=== PATIENT | male | born 1955 | race Caucasian/White ===

== ENCOUNTER 2017-12-14 10:32 | Emergency (ER) | payer OTHER, MEDICAID ==
[~2017-12-14] VITALS: Ht 152.4 cm; Wt 59.0 kg
[~2017-12-14 10:32] MED LIST: ADVIL200 M1 PO; AMLODIPINE BESY10 MG PO; ASPIR 8181 MG PO; ATORVASTATIN CA40 MG PO; CIPROFLOXACIN500 M1 PO; FLOMAX0.4 MG PO; HYDROCODON-ACE1 EAC7 PO; HYZAAR; KLOR-CON 1010 MEQ PO; LOPRESSOR50 PO; LORTAB 5 MG/5001 TA1 PO; LOSARTAN-HCTZ1 EAC1 PO; MACROBID 100 M100 M1 PO; NAPROSYN500 MG PO; NITROGLYCERIN0.4 MG SUBLING; PLAVIX 75 MG TA75 M1 PO; PROLOPRIM100 MG PO; TYLENOL325 MG PO; ZOCOR40 MG PO; ZPAK PO
[2017-12-14] MEDS ORDERED: MEN'S MULTI-VI1 EACH PO (10:56)
[2017-12-14] MEDS ORDERED: STOOL SOFTENER100 MG PO (10:57)
[2017-12-14] MEDS ORDERED: HERBAL LAX (10:57)
[2017-12-14] MEDS ORDERED: FISH OIL 1,001000 M2 PO (10:58)
[2017-12-14] MEDS ORDERED: VITAMINC500 PO (10:58)
[2017-12-14 12:52] VITALS: BP 131/102
== END 2017-12-14 12:52 | disposition home or self-care (01) ==
LOC: M.ERS 10:32
DX: S01.01XA Laceration without foreign body of scalp, initial encounter (principal); E78.00 Pure hypercholesterolemia, unspecified; Z88.1 Allergy status to other antibiotic agents; W01.190A Fall on same level from slipping, tripping and stumbling with subsequent striking against furniture, initial encounter; Y93.89 Activity, other specified; Y92.89 Other specified places as the place of occurrence of the external cause; Y99.8 Other external cause status

== ENCOUNTER 2018-08-05 09:36 | Emergency (ER) | payer OTHER, MEDICAID ==
[~2018-08-05] VITALS: Ht 152.4 cm; Wt 59.0 kg
[~2018-08-05 09:36] MED LIST changes: +FISH OIL 1,001000 M2 PO; +HERBAL LAX; +MEN'S MULTI-VI1 EACH PO; +STOOL SOFTENER100 MG PO; +VITAMINC500 PO
[2018-08-05 11:09] VITALS: BP 119/72
== END 2018-08-05 11:09 | disposition home or self-care (01) ==
LOC: M.ERS 09:36
DX: S01.01XA Laceration without foreign body of scalp, initial encounter (principal); Z88.1 Allergy status to other antibiotic agents; Z88.2 Allergy status to sulfonamides; Z90.49 Acquired absence of other specified parts of digestive tract; W18.39XA Other fall on same level, initial encounter; Y93.89 Activity, other specified; Y92.89 Other specified places as the place of occurrence of the external cause; Y99.8 Other external cause status

== ENCOUNTER 2019-06-28 18:40 | Emergency (ER) | payer OTHER ==
[~2019-06-28] VITALS: Ht 152.4 cm; Wt 59.0 kg
[2019-06-28 20:28] VITALS: BP 115/80
== END 2019-06-28 20:29 | disposition home or self-care (01) ==
LOC: M.ERS 18:40
DX: S01.01XA Laceration without foreign body of scalp, initial encounter (principal); E78.00 Pure hypercholesterolemia, unspecified; Z95.5 Presence of coronary angioplasty implant and graft; Z88.1 Allergy status to other antibiotic agents; Z88.2 Allergy status to sulfonamides; W18.09XA Striking against other object with subsequent fall, initial encounter; Y93.89 Activity, other specified; Y92.89 Other specified places as the place of occurrence of the external cause; Y99.8 Other external cause status

== ENCOUNTER 2019-11-18 18:30 | Emergency (ER) | payer MEDICARE ==
[~2019-11-18] VITALS: Ht 152.4 cm; Wt 59.0 kg
[2019-11-18 19:07] LABS: ABSOLUTE MONOCYTES 0.7 thou/uL (0.0-1.2); BASOPHILS 0.2 %; HEMATOCRIT 38.3 % (42.0-52.0); HEMOGLOBIN 13.2 gm/dL (14.0-18.0); MCHC 34.5 g/dL (28.0-37.0); MCV 95.8 fL (80.0-100.0); MONOCYTES 7.5 %; NUCLEATED RBCS 0 /100WBC; PLATELET COUNT* 302 thou/uL (150-400); POLYS 82.3 %; RBC 3.99 mil/uL (4.50-6.00); RDW-CV 13.2 % (10.5-14.5); WBC 9.8 thou/uL (4.0-11.0)
[2019-11-18 19:15] LABS: APTT 26.2 Seconds (25.0-31.3); PROTIME 10.6 Seconds (9.20-11.50)
[2019-11-18 19:16] LABS: CALCIUM 9.3 mg/dL (8.5-10.1); CREATININE 0.9 mg/dL (0.6-1.3); POTASSIUM 3.6 mmol/L (3.5-5.1)
[2019-11-18 19:26] LABS: ALBUMIN 3.4 g/dL (3.4-5.0); TOTAL BILIRUBIN 0.3 mg/dL (<0.1-1.0); TOTAL PROTEIN 6.8 g/dL (6.4-8.2)
[2019-11-18 20:36] LABS: INFLUENZA A ANTIGEN Negative (Negative); INFLUENZA B ANTIGEN Negative (Negative)
[2019-11-18 22:16] VITALS: BP 149/85
--- NOTE | 2019-11-19 11:37 | EKG ---
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1955 Requested By: Juliat Chen Order Number: [id number] MD: David Alicea Measurements Intervals [place] Rate: 74 P: 23 WI: 184 QRS: -50 QRSD: 79 T: -5 QT: 382 QTc: 424 Interpretive Statements Sinus rhythm Left anterior fascicular block Anterior infarct, old Borderline T abnormalities, inferior leads Compared to ECG 01/25/2017 08:15:49 T-wave abnormality now present Myocardial infarct finding still present Electronically Signed On 11-19-2019 11:36:44 SEWING MACHINES SALESPERSON by David Alicea [email or web address] <ELECTRONICALLY SIGNED> By: David Alicea MD, [facility] 11/19/19 1136 1843 1843 David Alicea MD, [facility] /EPI
== END 2019-11-18 22:17 | disposition home or self-care (01) ==
LOC: M.ERS 18:30
PROVIDERS: Emergency Medicine; Personal Emergency Response Attendant
DX: R07.89 Other chest pain (principal); E78.00 Pure hypercholesterolemia, unspecified; Z95.2 Presence of prosthetic heart valve; Z88.1 Allergy status to other antibiotic agents; Z88.2 Allergy status to sulfonamides; Z88.8 Allergy status to other drugs, medicaments and biological substances

== ENCOUNTER 2020-08-30 08:18 | Emergency (ER) | payer MEDICARE ==
[~2020-08-30] VITALS: Ht 152.4 cm; Wt 63.0 kg
--- NOTE | ~2020-08-30 | EMS ---
[facility] [address] [place] [address] EMS Patient Care Report Name: DOMINGA FRANK Room: [facility]#: [id number] Admission: 08/30/20 Attend Phys: Discharge: Date of : 51 Report #: [id number] THIS REPORT FOR: //name// Report Transmitted: 08/30/2020 07:47 EMS Care Summary [facility] [place] Incident [id number] @ 08/30/2020 07:41 Incident Location [address] [place] [address] Patient DOMINGA FRANK Male, 65 Years 1955 Patient Address [address] [place] [address] Patient History Unspecified dementia,Hypertension (HTN), Patient Allergies , Patient Medications Colace, Melatonin, Toprol, Nitroglycerin, Benicar, Flomax, Trimethaphan, Chief Complaint Fall Disposition Transported No Lights/[place] Dis[place] Reason Falls Transported To [facility] Narrative Dispatched to address noted for a fall. [facility] en route at time noted. Arrived with [facility] and found patient in memory care unit. Patient was sitting up in a chair and the RN stated that the patient was found on the floor this morning. Patient had hit his head on the floor and there was dried blood noted on his [facility] [address] [place] [address] EMS Patient Care Report Name: DOMINGA FRANK Room: [facility]#: [id number] Admission: 08/30/20 Attend Phys: Discharge: Date of : 51 Report #: [id number] head. Patient is a high functioning dementia patient and is able to have conversation and answer most questions. Patient denied a loss of consciousness and stated he only lost his footing. Patients staff stated he likes to wear a helmet during the day due to his frequent falls. Patient takes not blood thinners and is normally very unstable on his feet and unable to walk more than a few steps. Patient stated he was attempting to get up on his own when he fell. Patient was assisted to stretcher and then buckled in. Once in ambulance, vitals where taken at time noted and 4 lead was attached. IV was attempted with no success and [facility] was chosen. While en route, nothing eventful was noted. Vitals where taken again as noted. Radio report was given. Arrived and took patient to room. Patient was moved to bed and RN signed for patient and patient care after taking verbal report. END REPORT EMT-P Chivo [place] Initial Vitals @07:50Pain: 12/09, @08:07Pain: 12/09, @08:02SpO2: 97, @08:07SpO2: 99, @07:58P: 76,R: 16,BP: 157/89,Revised Trauma: 8, @08:10P: 73,R: 17,BP: 136/85,Revised Trauma: 8, @07:58GCS: 14, @08:10GCS: 14, @07:50 @08:02Glucose: 116, Assessments @07:50MENTAL:SKIN:HEENT:LUNG SOUNDS:ABDOMEN:PELVIS//GI:EXTREMITIES:PULSE:NEURO: Impression Injury Procedures @08:02 cc () Site: Hand-LeftResponse: UnchangedFailed Timeline 07:41,Call Received 07:41,Dispatch Notified 07:41,Psap Call 07:41,Dispatched 07:41,En Route 07:48,On Scene 07:50,At Patient 07:50,BP: / M,PULSE: ,RR: R,SPO2: Ox,ETCO2: ,BG: ,PAIN: 3,GCS: , 07:50,BP: / M,PULSE: ,RR: R,SPO2: Ox,ETCO2: ,BG: ,PAIN: ,GCS: , [place] [address] EMS Patient Care Report Name: MONIKADOMINGA LEE Room: [facility]#: [id number] Admission: 08/30/20 Attend Phys: Discharge: Date of : 51 Report #: [id number] 07:58,BP: 157/89 M,PULSE: 76,RR: 16 R,SPO2: Ox,ETCO2: ,BG: ,PAIN: ,GCS: , 07:58,BP: / M,PULSE: ,RR: R,SPO2: Ox,ETCO2: ,BG: ,PAIN: ,GCS: 14, 08:02,BP: / M,PULSE: ,RR: R,SPO2: 97 Ox,ETCO2: ,BG: ,PAIN: ,GCS: , 08:02, cc Site: Hand-Left,Response: UnchangedFailed, 08:02,BP: / M,PULSE: ,RR: R,SPO2: Ox,ETCO2: ,B,PAIN: ,GCS: , 08:04,Depart Scene 08:07,BP: / M,PULSE: ,RR: R,SPO2: 99 Ox,ETCO2: ,BG: ,PAIN: ,GCS: , 08:07,BP: / M,PULSE: ,RR: R,SPO2: Ox,ETCO2: ,BG: ,PAIN: 3,GCS: , 08:10,BP: 136/85 M,PULSE: 73,RR: 17 R,SPO2: Ox,ETCO2: ,BG: ,PAIN: ,GCS: , 08:10,BP: / M,PULSE: ,RR: R,SPO2: Ox,ETCO2: ,BG: ,PAIN: ,GCS: 14, 08:14,At Destination 08:21,Call Closed Disclaimer v1.1 Copyright 2020 [employer] This EMS Care Summary contains data elements from the applicable legal record (which may be displayed differently). It is designed to provide pertinent information for the following purposes: continuity of care, clinical quality, and state data reporting. The complete legal record is available to ED staff and administrators of the receiving hospital in [employer] Patient Tracker. All data is provided "as is."
[2020-08-30] MEDS ORDERED: OLMESARTAN-HCTZ (08:27)
[2020-08-30] MEDS ORDERED: ASA81BEC PO (08:28)
[2020-08-30 10:13] VITALS: BP 134/86
== END 2020-08-30 10:14 | disposition home or self-care (01) ==
LOC: M.ERS 08:18
DX: S01.01XA Laceration without foreign body of scalp, initial encounter (principal); E78.00 Pure hypercholesterolemia, unspecified; Z88.1 Allergy status to other antibiotic agents; Z88.2 Allergy status to sulfonamides; Z95.5 Presence of coronary angioplasty implant and graft; W18.39XA Other fall on same level, initial encounter; Y93.89 Activity, other specified; Y92.89 Other specified places as the place of occurrence of the external cause; Y99.8 Other external cause status

== ENCOUNTER 2020-10-29 14:56 | Emergency (ER) | payer MEDICARE ==
[~2020-10-29] VITALS: Ht 152.4 cm; Wt 59.0 kg
[~2020-10-29 14:56] MED LIST changes: +ASA81BEC PO; +OLMESARTAN-HCTZ
[2020-10-29 16:42] VITALS: BP 160/94
== END 2020-10-29 16:42 | disposition home or self-care (01) ==
LOC: M.ERS 14:56
DX: S00.12XA Contusion of left eyelid and periocular area, initial encounter (principal); Z88.1 Allergy status to other antibiotic agents; Z88.2 Allergy status to sulfonamides; W18.39XA Other fall on same level, initial encounter; Y93.89 Activity, other specified; Y92.89 Other specified places as the place of occurrence of the external cause; Y99.8 Other external cause status

== ENCOUNTER 2020-11-17 15:53 | Emergency (ER) | payer MEDICARE ==
[~2020-11-17] VITALS: Ht 152.4 cm; Wt 59.0 kg
[2020-11-17 16:26] LABS: ABSOLUTE BASOPHILS 0.1 thou/uL (0.0-0.2); ABSOLUTE EOSINOPHILS 0.1 thou/uL (0.0-0.7); ABSOLUTE LYMPHOCYTES 1.7 thou/uL (0.8-5.3); ABSOLUTE NEUTROPHILS 4.6 thou/uL (1.6-8.1); BASOPHILS 1.2 %; EOSINOPHILS 1.3 %; HEMATOCRIT 39.6 % (42.0-52.0); HEMOGLOBIN 13.1 gm/dL (14.0-18.0); LYMPHOCYTES 22.4 %; MCV 93.9 fL (80.0-100.0); MONOCYTES 13.3 %; MPV 8.4 fl. (7.2-11.1); NUCLEATED RBCS 0 /100WBC; PLATELET COUNT* 420 thou/uL (150-400); POLYS 61.8 %; RBC 4.21 mil/uL (4.50-6.00); RDW-CV 13.1 % (10.5-14.5); WBC 7.5 thou/uL (4.0-11.0)
[2020-11-17 16:34] LABS: CALCIUM 7.6 mg/dL (8.5-10.1); POTASSIUM 3.8 mmol/L (3.5-5.1)
[2020-11-17 16:37] LABS: APTT 26.2 Seconds (25.0-31.3); PROTIME 10.3 Seconds (9.20-11.50)
[2020-11-17 16:44] LABS: ALBUMIN 3.7 g/dL (3.4-5.0); TOTAL BILIRUBIN 0.2 mg/dL (<0.1-1.0)
[2020-11-17 17:01] VITALS: BP 168/104
--- NOTE | 2020-11-18 10:27 | EKG ---
[place] [address] ELECTROCARDIOGRAM REPORT Name: DOMINGA FRANK Room: 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: : 1955 Requested By: Aurelio Morris Order Number: [id number] MD: Armando Ashton Measurements Intervals [place] Rate: 70 P: ME: QRS: -44 QRSD: 91 T: -9 QT: 431 QTc: 466 Interpretive Statements sinus rhythm left anterior fasicular block Anteroseptal infarct, old Compared to ECG 11/18/2019 18:43:46 Myocardial infarct finding still present Electronically Signed On 11-18-2020 10:27:27 HUMAN RESOURCES OPERATIONS COORDINATOR by Armando Ashton [email or web address] <ELECTRONICALLY SIGNED> By: Armando Ashton MD, FAC 11/18/20 1027 1615 1615 Armando Ashton MD, [facility] /EPI
== END 2020-11-17 17:01 | disposition home or self-care (01) ==
LOC: M.ERS 15:53
PROVIDERS: Family Medicine
DX: I10 Essential (primary) hypertension (principal); E78.00 Pure hypercholesterolemia, unspecified; Z88.1 Allergy status to other antibiotic agents; Z88.2 Allergy status to sulfonamides; Z95.5 Presence of coronary angioplasty implant and graft; Z79.899 Other long term (current) drug therapy

== ENCOUNTER 2021-01-21 22:21 | Emergency (ER) | payer MEDICARE ==
[~2021-01-21] VITALS: Ht 152.4 cm; Wt 59.0 kg
[2021-01-21] MEDS ORDERED: 3-DAY VAGINAL C21 GM TOP (22:38)
[2021-01-21] MEDS ORDERED: MELATONIN10 M3 PO (22:39)
[2021-01-21] MEDS ORDERED: FIBER LAXATIVE500 MG PO (22:39)
[2021-01-21] MEDS ORDERED: OLMESARTAN-HCT1 EACH PO (22:40)
[2021-01-21] MEDS ORDERED: LATANOPROST 0.2.5 ML OPHTHALMIC (22:40)
[2021-01-21] MEDS ORDERED: SENNA PLUS TAB1 EACH PO (22:41)
[2021-01-22 01:00] VITALS: BP 148/98
== END 2021-01-22 01:01 | disposition home or self-care (01) ==
LOC: M.ERS 22:21
DX: S00.11XA Contusion of right eyelid and periocular area, initial encounter (principal); E78.00 Pure hypercholesterolemia, unspecified; Z88.1 Allergy status to other antibiotic agents; Z95.5 Presence of coronary angioplasty implant and graft; Z88.2 Allergy status to sulfonamides; W01.0XXA Fall on same level from slipping, tripping and stumbling without subsequent striking against object, initial encounter; Y93.89 Activity, other specified; Y92.89 Other specified places as the place of occurrence of the external cause; Y99.8 Other external cause status

== ENCOUNTER 2021-02-13 16:23 | Emergency (ER) | payer MEDICARE ==
[~2021-02-13] VITALS: Ht 152.4 cm; Wt 59.0 kg
[~2021-02-13 16:23] MED LIST changes: +3-DAY VAGINAL C21 GM TOP; +FIBER LAXATIVE500 MG PO; +LATANOPROST 0.2.5 ML OPHTHALMIC; +MELATONIN10 M3 PO; +OLMESARTAN-HCT1 EACH PO; +SENNA PLUS TAB1 EACH PO
[2021-02-13] MEDS ORDERED: VITAMIN D 3 PO (16:33)
[2021-02-13] MEDS ORDERED: IBUPROFEN 600600 M1 PO (17:26)
[2021-02-13] MEDS ORDERED: TYLENOL EXTRA500 MG PO (17:26)
[2021-02-13 17:45] VITALS: BP 110/89
== END 2021-02-13 17:46 ==
LOC: M.ERS 16:23
DX: S01.81XA Laceration without foreign body of other part of head, initial encounter (principal); G89.29 Other chronic pain; M54.9 Dorsalgia, unspecified; I10 Essential (primary) hypertension; E78.00 Pure hypercholesterolemia, unspecified; Z79.899 Other long term (current) drug therapy; Z79.82 Long term (current) use of aspirin; Z88.1 Allergy status to other antibiotic agents; Z88.2 Allergy status to sulfonamides; Z95.5 Presence of coronary angioplasty implant and graft; W07.XXXA Fall from chair, initial encounter; Y93.89 Activity, other specified; Y92.098 Other place in other non-institutional residence as the place of occurrence of the external cause; Y99.8 Other external cause status

== ENCOUNTER 2021-03-14 04:24 | Emergency (ER) | payer MEDICARE ==
[~2021-03-14] VITALS: Ht 152.4 cm; Wt 59.0 kg
[~2021-03-14 04:24] MED LIST changes: +IBUPROFEN 600600 M1 PO; +TYLENOL EXTRA500 MG PO; +VITAMIN D 3 PO
[2021-03-14 06:30] VITALS: BP 156/98
== END 2021-03-14 06:30 | disposition home or self-care (01) ==
LOC: M.ERS 04:24
DX: S01.01XA Laceration without foreign body of scalp, initial encounter (principal); Z88.1 Allergy status to other antibiotic agents; Z88.2 Allergy status to sulfonamides; Z95.5 Presence of coronary angioplasty implant and graft; W18.39XA Other fall on same level, initial encounter; Y93.89 Activity, other specified; Y92.89 Other specified places as the place of occurrence of the external cause; Y99.8 Other external cause status

== ENCOUNTER 2021-03-28 07:35 | Emergency (ER) | payer MEDICARE ==
[~2021-03-28] VITALS: Ht 152.4 cm; Wt 63.5 kg
[2021-03-28 08:16] LABS: HEMATOCRIT 36.6 % (42.0-52.0); HEMOGLOBIN 12.6 gm/dL (14.0-18.0); MCH 30.8 pg (26.0-34.0); MCHC 34.4 g/dL (28.0-37.0); MCV 89.5 fL (80.0-100.0); MPV 8.5 fl. (7.2-11.1); RBC 4.08 mil/uL (4.50-6.00); RDW-CV 13.9 % (10.5-14.5); WBC 6.4 thou/uL (4.0-11.0)
[2021-03-28 08:35] LABS: CALCIUM 8.3 mg/dL (8.5-10.1); CREATININE 0.7 mg/dL (0.6-1.3); POTASSIUM 3.9 mmol/L (3.5-5.1)
[2021-03-28 09:57] VITALS: BP 160/109
--- NOTE | 2021-03-29 10:23 | EKG ---
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1955 Requested By: Marcial Mathew Order Number: [id number] MD: Armando Ashton Measurements Intervals [place] Rate: 80 P: 22 [place]: 174 QRS: -41 QRSD: 80 T: -5 QT: 373 QTc: 431 Interpretive Statements Sinus rhythm Inferior infarct, old Anterior infarct, old Compared to ECG 11/17/2020 16:15:26 No significant changes Electronically Signed On 03-29-2021 10:22:51 CDT by Armando Ashton [email or web address] <ELECTRONICALLY SIGNED> By: Armando Ashton MD, [facility] 03/29/21 1022 0755 0755 Armando Ashton MD, [facility] /EPI
== END 2021-03-28 10:00 | disposition home or self-care (01) ==
LOC: M.ERS 07:35
PROVIDERS: Emergency Medicine Emergency Medical Services
DX: S01.01XA Laceration without foreign body of scalp, initial encounter (principal); E78.00 Pure hypercholesterolemia, unspecified; Z95.5 Presence of coronary angioplasty implant and graft; Z88.1 Allergy status to other antibiotic agents; Z88.2 Allergy status to sulfonamides; W18.39XA Other fall on same level, initial encounter; Y93.89 Activity, other specified; Y92.128 Other place in nursing home as the place of occurrence of the external cause; Y99.8 Other external cause status

== ENCOUNTER 2021-06-29 03:47 | Emergency (ER) | payer MEDICARE ==
[~2021-06-29] VITALS: Ht 152.4 cm; Wt 61.0 kg
[2021-06-29] MEDS ORDERED: FIBER LAXATIVE500 MG PO (04:04)
[2021-06-29] MEDS ORDERED: DULCOLAX STOOL100 M1 PO (04:04)
[2021-06-29] MEDS ORDERED: VYZULTA5 ML OPHTHALMIC (04:04)
[2021-06-29] MEDS ORDERED: TOPROL XL25 MG PO (04:05)
[2021-06-29] MEDS ORDERED: MELATONIN10 M3 PO (04:05)
[2021-06-29] MEDS ORDERED: SUPER THERAVIT1 EACH PO (04:05)
[2021-06-29] MEDS ORDERED: NITROSTAT0.4 M1 PO (04:06)
[2021-06-29] MEDS ORDERED: BENICAR HCT 201 EACH PO (04:07)
[2021-06-29] MEDS ORDERED: SENNA8.8 MG/5 M PO (04:08)
[2021-06-29] MEDS ORDERED: VITAMIN D3 COM1 EACH PO (04:10)
[2021-06-29 05:38] VITALS: BP 169/98
== END 2021-06-29 08:09 | disposition home or self-care (01) ==
LOC: M.ERS 03:47
DX: S00.01XA Abrasion of scalp, initial encounter (principal); R26.81 Unsteadiness on feet; I10 Essential (primary) hypertension; E78.00 Pure hypercholesterolemia, unspecified; I25.10 Atherosclerotic heart disease of native coronary artery without angina pectoris; Z79.82 Long term (current) use of aspirin; Z95.828 Presence of other vascular implants and grafts; Z79.899 Other long term (current) drug therapy; Z88.1 Allergy status to other antibiotic agents; Z88.2 Allergy status to sulfonamides; W19.XXXA Unspecified fall, initial encounter; Y93.89 Activity, other specified; Y92.128 Other place in nursing home as the place of occurrence of the external cause; Y99.8 Other external cause status